=== PATIENT | female | born 1965 | race Caucasian/White ===

== ENCOUNTER 2024-03-31 18:20 | Inpatient (IN) | payer MEDICAID ==
[~2024-03-31] VITALS: Ht 177.8 cm; Wt 72.7 kg
[2024-03-31 20:22] LABS: BASOPHILS % (AUTO) 0.3 % (0-1); EOSINOPHILS # (AUTO) 0.1 X10'3 (0-0.9); EOSINOPHILS % (AUTO) 0.7 % (0-6); HEMOGLOBIN 11.3 g/dl (12.0-16.0); LYMPHOCYTES # (AUTO) 1.7 X10'3 (1.1-4.8); LYMPHOCYTES % (AUTO) 14.9 % (21-51); MEAN CORPUSCULAR HEMOGLOBIN 28.9 PG (27.0-31.0); MEAN CORPUSCULAR HGB CONC 33.2 g/dL (33.0-36.5); MEAN CORPUSCULAR VOLUME 87.1 FL (78-98); MONOCYTES # (AUTO) 0.5 X10'3 (0-0.9); MONOCYTES % (AUTO) 4.1 % (2-12); NEUTROPHILS # (AUTO) 9.3 X10'3 (1.8-7.7); PLATELET COUNT 253 X10'3 (140-440); RED BLOOD COUNT 3.91 X10'6 (4.20-5.60); RED CELL DISTRIBUTION WIDTH 15.4 % (11.5-14.5); WHITE BLOOD COUNT 11.6 X10'3 (4.5-11.0)
[2024-03-31] MEDS ORDERED: magnesium sulf-water 4G/100mL 100 ML IV PRN (20:50)
[2024-03-31] MEDS ORDERED: morphine 2 MG/ML inj. syringe IV PRN (20:50)
[2024-03-31] MEDS ORDERED: ondansetron/PF 4mg/2ml inj IV PRN (20:50)
[2024-03-31] MEDS ORDERED: magnesium Cl slow-release 64mg tablet PO PRN (20:50)
[2024-03-31] MEDS ORDERED: magnesium sulf-water 2g/50mL 50 ML IV PRN (20:50)
[2024-03-31] MEDS ORDERED: magnesium hydroxide 30ml (MOM) UD suspension PO PRN (20:50)
[2024-03-31] MEDS ORDERED: acetaminophen 325mg tablet PO PRN (20:50)
[2024-03-31] MEDS ORDERED: mag hydrox/Alum hydrox/simeth 30ml oral suspension PO PRN (20:50)
[2024-03-31] MEDS ORDERED: potassium Cl 20 mEq SR tablet PO PRN (20:50)
[2024-03-31] MEDS ORDERED: potassium Cl 40MEQ/1/2NS 520ml 520 ML IV PRN (20:50)
[2024-03-31] MEDS: normal saline 1000ml 1,000 ML IV SCH (21:23)
[2024-03-31 21:34] LABS: BILIRUBIN,URINE NEGATIVE (Neg); CLARITY,URINE SLIGHTLY CLOUDY (Clear); COLOR,URINE YELLOW (Yellow); GLUCOSE, URINE NEGATIVE (Neg); KETONES,URINE TRACE mg/dl (Neg); LEUKOCYTE ESTERASE ,URINE TRACE (Neg); NITRITES, URINE NEGATIVE (Neg); OCCULT BLOOD,URINE MODERATE (Neg); PROTEIN,URINE TRACE mg/dl (Neg); UROBILINOGEN,URINE 0.2 E.U/dL (0.2-1.0)
[2024-03-31 21:38] LABS: UA COLLECTION TYPE CLN CATCH MIDSTREAM
[2024-03-31 21:39] LABS: BACTERIA,URINE 3+ /HPF (Neg); SQUAMOUS EPITHELIAL CELL,UR FEW /LPF (FEW)
[2024-03-31 22:05] LABS: ALANINE AMINOTRANSFERASE 38 U/L (12-78); ALBUMIN 1.9 G/DL (3.4-5.0); ALBUMIN/GLOBULIN RATIO 0.5 (1.1-1.5); ALKALINE PHOSPHATASE 270 IU/L (46-116); ANION GAP 11 (8-16); ASPARTATE AMINO TRANSFERASE 32 U/L (10-37); BILIRUBIN,TOTAL 0.7 MG/DL (0.1-1.0); BLOOD UREA NITROGEN 34 MG/DL (7-18); BUN/CREATININE RATIO 21.7 (10.0-20.0); CALCIUM 8.7 MG/DL (8.5-10.1); CHLORIDE 104 MMOL/L (99-107); CREATININE 1.57 MG/DL (0.40-0.90); GLUCOSE 87 MG/DL (70-104); POTASSIUM 3.3 MMOL/L (3.5-5.1); SODIUM 137 MMOL/L (135-145); TOTAL CARBON DIOXIDE 21.7 MMOL/L (24-32); TOTAL PROTEIN 6.1 G/DL (6.4-8.2); eCRCL 41 ML/MIN; eGFR 34 ML/MIN
[2024-03-31 22:30] VITALS: BP 141/68; PULSE 107; RESP 18; TEMP 99.8; O2SAT 98
[2024-03-31 22:36] VITALS: RESP 20; O2SAT 94
[2024-04-01] VITALS (11 sets, daily range): BP systolic 91–104; BP diastolic 39–55; PULSE 68–96; RESP 14–22; TEMP 97.2–97.7; O2SAT 93–100
[2024-04-01] MEDS: piperacillin/tazo 4.5gm/100ml 100 ML IV SCH (00:28)
[2024-04-01] MEDS: potassium Cl 20 mEq SR tablet PO PRN (00:28)
[2024-04-01 06:34] LABS: BASOPHILS % (AUTO) 0.2 % (0-1); EOSINOPHILS % (AUTO) 0.2 % (0-6); HEMATOCRIT 25.6 % (35.0-45.0); HEMOGLOBIN 8.8 g/dl (12.0-16.0); LYMPHOCYTES % (AUTO) 7.2 % (21-51); MEAN CORPUSCULAR HEMOGLOBIN 28.9 PG (27.0-31.0); MEAN CORPUSCULAR HGB CONC 34.1 g/dL (33.0-36.5); MEAN CORPUSCULAR VOLUME 84.8 FL (78-98); MEAN PLATELET VOLUME 7.9 FL (7.4-10.4); MONOCYTES # (AUTO) 0.8 X10'3 (0-0.9); MONOCYTES % (AUTO) 5.8 % (2-12); NEUTROPHILS # (AUTO) 11.6 X10'3 (1.8-7.7); NEUTROPHILS % (AUTO) 86.6 % (42-75); PLATELET COUNT 291 X10'3 (140-440); RED BLOOD COUNT 3.02 X10'6 (4.20-5.60); RED CELL DISTRIBUTION WIDTH 14.7 % (11.5-14.5); WHITE BLOOD COUNT 13.4 X10'3 (4.5-11.0)
[2024-04-01 07:00] LABS: ALANINE AMINOTRANSFERASE 35 U/L (12-78); ALBUMIN 1.6 G/DL (3.4-5.0); ALBUMIN/GLOBULIN RATIO 0.4 (1.1-1.5); ALKALINE PHOSPHATASE 318 IU/L (46-116); ANION GAP 13 (8-16); ASPARTATE AMINO TRANSFERASE 34 U/L (10-37); BILIRUBIN,TOTAL 1.2 MG/DL (0.1-1.0); BLOOD UREA NITROGEN 27 MG/DL (7-18); BUN/CREATININE RATIO 18.4 (10.0-20.0); CALCIUM 8.2 MG/DL (8.5-10.1); CHLORIDE 105 MMOL/L (99-107); CREATININE 1.47 MG/DL (0.40-0.90); GLUCOSE 91 MG/DL (70-104); MAGNESIUM 1.8 MG/DL (1.5-2.4); POTASSIUM 3.6 MMOL/L (3.5-5.1); SODIUM 137 MMOL/L (135-145); TOTAL CARBON DIOXIDE 19.4 MMOL/L (24-32); TOTAL PROTEIN 5.6 G/DL (6.4-8.2); eCRCL 44 ML/MIN; eGFR 36 ML/MIN
[2024-04-01] MEDS: K and/or MAG REPLACEMENT MC SCH (08:00)
[2024-04-01] MEDS: docusate sod 100mg capsule PO SCH (08:31)
[2024-04-01] MEDS: heparin, porcine 5000 units/ml vial SQ SCH (08:31)
[2024-04-01] MEDS ORDERED: iohexol 300 MG/1 ML 50ml polymer ONE (11:42)
[2024-04-01] MEDS: HYDROmorphone inj. 0.5 MG/0.5 ML DISP.SYRIN IV PRN (11:56)
[2024-04-01] MEDS ORDERED: morphine 4 MG/ML inj SYRINge IV PRN (13:30)
[2024-04-01] MEDS ORDERED: enalaprilat dihydrate 2.5mg/2ml vial IV PRN (13:30)
[2024-04-01] MEDS ORDERED: meperidine/PF 25mg/ml syringe IV PRN ×3 (13:30)
[2024-04-01] MEDS ORDERED: morphine 2 MG/ML inj. syringe IV PRN (13:30)
[2024-04-01] MEDS ORDERED: proCHLORperazine 10 MG/2 ml inj IV PRN (13:30)
[2024-04-01] MEDS ORDERED: ondansetron/PF 4mg/2ml inj IV PRN (13:30)
[2024-04-01] MEDS ORDERED: labetalol 20mg/4ml (5mg/ml) syringe IV PRN (13:30)
[2024-04-01] MEDS ORDERED: sevoflurane 250ml liquid IH ONE (14:45)
[2024-04-01] MEDS ORDERED: midazolam 1 mg/ML 2ml injection ONE (14:54)
[2024-04-01] MEDS ORDERED: fentaNYL/PF 50MCG/1 ML 2ML syringe ONE (14:54)
[2024-04-01] MEDS ORDERED: LIDOcaine 2% (20mg/ml) 5ml vial ONE (15:08)
[2024-04-01] MEDS ORDERED: propofol inj 20 ML IV ONE (15:08)
[2024-04-01] MEDS ORDERED: dexamethasone sod phosphate 4mg/ml inj. ONE (15:09)
[2024-04-01] MEDS ORDERED: ondansetron/PF 4mg/2ml inj ONE (15:09)
[2024-04-01] MEDS: iohexol 350 MG/ML 50ML vial IV ONE (15:41)
[2024-04-01] MEDS ORDERED: HYDR-3965 PO (15:48)
[2024-04-01] MEDS: ringers solution, lacted 1,000 ML IV SCH (16:00)
[2024-04-01] MEDS: Melatonin 3mg tablet PO ONE (23:01)
[2024-04-02 06:40] VITALS: BP 97/54; PULSE 78; RESP 16; TEMP 97.9; O2SAT 95
[2024-04-02 06:42] LABS: BASOPHILS % (AUTO) 0.1 % (0-1); EOSINOPHILS % (AUTO) 0 % (0-6); HEMATOCRIT 26.1 % (35.0-45.0); HEMOGLOBIN 8.6 g/dl (12.0-16.0); LYMPHOCYTES # (AUTO) 0.9 X10'3 (1.1-4.8); LYMPHOCYTES % (AUTO) 5.8 % (21-51); MEAN CORPUSCULAR HEMOGLOBIN 28.3 PG (27.0-31.0); MEAN CORPUSCULAR HGB CONC 33.1 g/dL (33.0-36.5); MEAN CORPUSCULAR VOLUME 85.6 FL (78-98); MONOCYTES # (AUTO) 0.2 X10'3 (0-0.9); MONOCYTES % (AUTO) 1.1 % (2-12); NEUTROPHILS # (AUTO) 15.2 X10'3 (1.8-7.7); PLATELET COUNT 384 X10'3 (140-440); RED BLOOD COUNT 3.05 X10'6 (4.20-5.60); RED CELL DISTRIBUTION WIDTH 14.8 % (11.5-14.5); WHITE BLOOD COUNT 16.3 X10'3 (4.5-11.0)
[2024-04-02 07:26] LABS: ALANINE AMINOTRANSFERASE 36 U/L (12-78); ALBUMIN 1.9 G/DL (3.4-5.0); ALBUMIN/GLOBULIN RATIO 0.4 (1.1-1.5); ALKALINE PHOSPHATASE 320 IU/L (46-116); ANION GAP 10 (8-16); ASPARTATE AMINO TRANSFERASE 30 U/L (10-37); BILIRUBIN,TOTAL 0.8 MG/DL (0.1-1.0); BLOOD UREA NITROGEN 24 MG/DL (7-18); BUN/CREATININE RATIO 19.2 (10.0-20.0); CALCIUM 7.9 MG/DL (8.5-10.1); CHLORIDE 104 MMOL/L (99-107); CREATININE 1.25 MG/DL (0.40-0.90); FERRITIN 465 NG/ML (8-252); GLUCOSE 146 MG/DL (70-104); MAGNESIUM 1.8 MG/DL (1.5-2.4); POTASSIUM 3.8 MMOL/L (3.5-5.1); SODIUM 137 MMOL/L (135-145); TOTAL CARBON DIOXIDE 22.6 MMOL/L (24-32); TOTAL PROTEIN 6.3 G/DL (6.4-8.2); eCRCL 52 ML/MIN; eGFR 44 ML/MIN
[2024-04-02 07:43] LABS: % IRON SATURATION 9 % (11-46); IRON 20 UG/DL (49-151); TOTAL IRON BINDING CAPACITY 217 UG/DL (259-388)
[2024-04-02 08:55] VITALS: RESP 16; O2SAT 95
[2024-04-02 10:23] VITALS: BP 97/58; PULSE 80; RESP 16; TEMP 98; O2SAT 99
[2024-04-02] MEDS ORDERED: CIPR-259 PO (10:52)
== END 2024-04-02 11:30 | disposition home or self-care (01) | DRG 463 ==
LOC: ER 18:21 → ED HOLD 20:48 → ORTHO 4S 22:25
PROVIDERS: ADMIT Internal Medicine Critical Care Medicine; ATTEND Internal Medicine
PROC: BW211ZZ Computerized Tomography (CT Scan) of Abdomen and Pelvis using Low Osmolar Contrast (ICD-10-PCS; 2024-03-31)
PROC: BT1F1ZZ Fluoroscopy of Left Kidney, Ureter and Bladder using Low Osmolar Contrast (ICD-10-PCS; 2024-04-01)
PROC: 0T778DZ Dilation of Left Ureter with Intraluminal Device, Via Natural or Artificial Opening Endoscopic (ICD-10-PCS; principal; 2024-04-01 14:45)
DX: N13.6 Pyonephrosis (principal); N17.9 Acute kidney failure, unspecified; E66.9 Obesity, unspecified; Z66 Do not resuscitate; R73.03 Prediabetes; D72.829 Elevated white blood cell count, unspecified; D64.9 Anemia, unspecified; F17.210 Nicotine dependence, cigarettes, uncomplicated; R31.9 Hematuria, unspecified; Z90.710 Acquired absence of both cervix and uterus; Z68.23 Body mass index [BMI] 23.0-23.9, adult
CPT/HCPCS: 36415; 74176; 76000; 80053; 81001; 82607; 82728; 83036; 83540; 83550; 83735; 84145; 85025; 87040; 87081; 87088; 97161; 97530; 99285; A4615; A4618; C2617; G0378; J1100; J1171; J1644; J2003; J2250; J2405; J2543; J2704; J3010; J7030; Q9967

== ENCOUNTER 2024-04-07 19:11 | Inpatient (IN) | payer MEDICAID ==
[~2024-04-07] VITALS: Ht 176.5 cm; Wt 66.8 kg
[~2024-04-07 19:11] MED LIST: CIPR-259 PO; HYDR-3965 PO
[2024-04-07 20:29] LABS: EOSINOPHILS % (AUTO) 0.1 % (0-6); HEMOGLOBIN 8.9 g/dl (12.0-16.0); LYMPHOCYTES # (AUTO) 1.7 X10'3 (1.1-4.8); MEAN CORPUSCULAR HEMOGLOBIN 28.8 PG (27.0-31.0); MEAN CORPUSCULAR HGB CONC 34.1 g/dL (33.0-36.5); MEAN CORPUSCULAR VOLUME 84.6 FL (78-98); MEAN PLATELET VOLUME 6.8 FL (7.4-10.4); MONOCYTES # (AUTO) 0.3 X10'3 (0-0.9); NEUTROPHILS # (AUTO) 1.5 X10'3 (1.8-7.7); NEUTROPHILS % (AUTO) 41.9 % (42-75); PLATELET COUNT 414 X10'3 (140-440); RED BLOOD COUNT 3.07 X10'6 (4.20-5.60); RED CELL DISTRIBUTION WIDTH 15.4 % (11.5-14.5); WHITE BLOOD COUNT 3.5 X10'3 (4.5-11.0)
[2024-04-07 20:46] LABS: ANION GAP 7 (8-16); BLOOD UREA NITROGEN 10 MG/DL (7-18); BUN/CREATININE RATIO 8.3 (10.0-20.0); CALCIUM 6.4 MG/DL (8.5-10.1); CHLORIDE 106 MMOL/L (99-107); CREATININE 1.21 MG/DL (0.40-0.90); POTASSIUM 3.1 MMOL/L (3.5-5.1); PRO BRAIN NATRIURETIC PEPTIDE 165 PG/ML (0-125); SODIUM 141 MMOL/L (135-145); TOTAL CARBON DIOXIDE 28.2 MMOL/L (24-32); eCRCL 52 ML/MIN; eGFR 45 ML/MIN
[2024-04-07 20:54] LABS: GLUCOSE 100 MG/DL (70-104)
[2024-04-07 21:49] LABS: MAGNESIUM 1.3 MG/DL (1.5-2.4)
[2024-04-07] MEDS ORDERED: mag hydrox/Alum hydrox/simeth 30ml oral suspension PO PRN (22:25)
[2024-04-07] MEDS ORDERED: HYDROmorphone/PF 0.2 MG/ML SYRINGE IV PRN (22:25)
[2024-04-07] MEDS ORDERED: magnesium sulf-water 4G/100mL 100 ML IV PRN (22:25)
[2024-04-07] MEDS ORDERED: acetaminophen 325mg tablet PO PRN ×2 (22:25)
[2024-04-07] MEDS ORDERED: potassium Cl 40MEQ/1/2NS 520ml 520 ML IV PRN (22:25)
[2024-04-07] MEDS ORDERED: magnesium hydroxide 30ml (MOM) UD suspension PO PRN (22:25)
[2024-04-07] MEDS ORDERED: potassium Cl 20 mEq SR tablet PO PRN (22:25)
[2024-04-07] MEDS: HYDROmorphone/PF 0.2 MG/ML SYRINGE IV ONE (22:35)
[2024-04-07] MEDS ORDERED: albuterol 1.25 MG/3 ML (1/2 strength) nebule NEB PRN (22:40)
[2024-04-07] MEDS: acetaminophen 325mg tablet PO ONE (22:41)
[2024-04-07] MEDS: ringers solution, lacted 1,000 ML IV SCH (22:59)
[2024-04-07] MEDS: ondansetron/PF 4mg/2ml inj IV PRN (22:59)
[2024-04-07] MEDS: HYDROmorphone inj. 0.5 MG/0.5 ML DISP.SYRIN IV PRN (22:59)
[2024-04-08] VITALS (8 sets, daily range): BP systolic 97–118; BP diastolic 44–59; PULSE 65–84; RESP 14–26; TEMP 97.2–98.4; O2SAT 92–97
[2024-04-08] MEDS: ipratropium/albuterol 3ml nebule NEB SCH (00:08)
[2024-04-08] MEDS ORDERED: ipratropium/albuterol 3ml nebule NEB PRN (00:15)
[2024-04-08] MEDS: normal saline 500ml IV soln 500 ML IV ONE (00:30)
[2024-04-08 02:46] LABS: EOSINOPHILS % (AUTO) 0.1 % (0-6); LYMPHOCYTES # (AUTO) 1.6 X10'3 (1.1-4.8); MEAN PLATELET VOLUME 7.2 FL (7.4-10.4); NEUTROPHILS # (AUTO) 1.5 X10'3 (1.8-7.7)
[2024-04-08 02:48] LABS: BASOPHILS % (AUTO) 0.9 % (0-1); HEMATOCRIT 28.1 % (35.0-45.0); HEMOGLOBIN 9.4 g/dl (12.0-16.0); LYMPHOCYTES % (AUTO) 47.8 % (21-51); MEAN CORPUSCULAR HEMOGLOBIN 28.6 PG (27.0-31.0); MEAN CORPUSCULAR HGB CONC 33.6 g/dL (33.0-36.5); MEAN CORPUSCULAR VOLUME 85.1 FL (78-98); MONOCYTES # (AUTO) 0.2 X10'3 (0-0.9); MONOCYTES % (AUTO) 7.2 % (2-12); PLATELET COUNT 372 X10'3 (140-440); RED CELL DISTRIBUTION WIDTH 15.3 % (11.5-14.5); WHITE BLOOD COUNT 3.4 X10'3 (4.5-11.0)
[2024-04-08 02:52] LABS: INR 1.1 INR; PROTHROMBIN TIME 11.8 SECONDS (9.0-12.0)
[2024-04-08 02:57] LABS: ALANINE AMINOTRANSFERASE 46 U/L (12-78); ALBUMIN/GLOBULIN RATIO 0.5 (1.1-1.5); ALKALINE PHOSPHATASE 149 IU/L (46-116); ANION GAP 7 (8-16); ASPARTATE AMINO TRANSFERASE 57 U/L (10-37); BILIRUBIN,TOTAL 0.3 MG/DL (0.1-1.0); BLOOD UREA NITROGEN 7 MG/DL (7-18); BUN/CREATININE RATIO 5.8 (10.0-20.0); CALCIUM 6.7 MG/DL (8.5-10.1); CHLORIDE 107 MMOL/L (99-107); CHOL/HDL RATIO 5.9 (0.00-4.99); CHOLESTEROL 124 MG/DL (0-200); CREATININE 1.21 MG/DL (0.40-0.90); GLUCOSE 103 MG/DL (70-104); HDL CHOLESTEROL 21 MG/DL (35-60); LDL CHOLESTEROL 74 MG/DL (50-100); MAGNESIUM 1.3 MG/DL (1.5-2.4); PHOSPHORUS 2.9 MG/DL (2.3-4.5); POTASSIUM 3.3 MMOL/L (3.5-5.1); SODIUM 142 MMOL/L (135-145); TOTAL CARBON DIOXIDE 28.3 MMOL/L (24-32); TOTAL PROTEIN 5.8 G/DL (6.4-8.2); TRIGLYCERIDES 176 MG/DL (20-135); eCRCL 52 ML/MIN; eGFR 45 ML/MIN
[2024-04-08 03:29] LABS: TOTAL CELLS COUNTED 100
[2024-04-08] MEDS: LidoCAINE 2% Topical Jelly 11mL syringe (UROJET) TOP ONE (03:30)
[2024-04-08 04:28] LABS: BILIRUBIN,URINE NEGATIVE (Neg); CLARITY,URINE CLOUDY (Clear); COLOR,URINE YELLOW (Yellow); GLUCOSE, URINE NEGATIVE (Neg); KETONES,URINE NEGATIVE (Neg); LEUKOCYTE ESTERASE ,URINE SMALL (Neg); NITRITES, URINE NEGATIVE (Neg); OCCULT BLOOD,URINE LARGE (Neg); PH,URINE 6.5 (4.8-8.0); PROTEIN,URINE NEGATIVE (Neg); UROBILINOGEN,URINE 0.2 E.U/dL (0.2-1.0)
[2024-04-08 04:32] LABS: UA COLLECTION TYPE NON-SPECIFIED
[2024-04-08 04:33] LABS: BACTERIA,URINE FEW /HPF (Neg); RBC,URINE 50-100 /HPF (0-2); SQUAMOUS EPITHELIAL CELL,UR FEW /LPF (FEW); WBC,URINE 0-4 /HPF (0-4)
[2024-04-08] MEDS: HYDROcodone/acetaminophen 10/325mg tab PO PRN (04:37)
[2024-04-08] MEDS: potassium bicarbonate/cit acid 25mEq tablet.effervescent PO SCH (04:38)
[2024-04-08] MEDS: magnesium sulf-water 2g/50mL 50 ML IV PRN (05:17)
[2024-04-08] MEDS: potassium Cl 20 mEq SR tablet PO PRN (05:17)
[2024-04-08] MEDS: docusate sod 100mg capsule PO SCH (08:00)
[2024-04-08] MEDS: K and/or MAG REPLACEMENT MC SCH (08:00)
[2024-04-08] MEDS: CefTRIAXone/D5W-Rocephin 1gm 50 ML IV SCH (08:34)
[2024-04-08] MEDS: azithromycin/NS 500mg/250ml 250 ML IV SCH (08:34)
[2024-04-08] MEDS: heparin, porcine 5000 units/ml vial SQ SCH (08:34)
[2024-04-08] MEDS ORDERED: ONDA-103 PO (10:32)
[2024-04-08] MEDS ORDERED: CIPR500T5 PO (10:32)
[2024-04-08] MEDS ORDERED: HYDR-3964 PO (10:32)
[2024-04-08] MEDS: normal saline 1000ml 1,000 ML IV SCH (11:38)
[2024-04-08] MEDS: HYDROcodone/acetaminophen 5mg/325mg tablet PO PRN (20:53)
[2024-04-08] MEDS: magnesium Cl slow-release 64mg tablet PO PRN (21:47)
[2024-04-09] VITALS (10 sets, daily range): BP systolic 88–104; BP diastolic 44–51; PULSE 69–103; RESP 13–26; TEMP 97.6–98.6; O2SAT 92–100
[2024-04-09 07:44] LABS: BASOPHILS % (AUTO) 0.7 % (0-1); EOSINOPHILS % (AUTO) 0.1 % (0-6); HEMATOCRIT 26.3 % (35.0-45.0); HEMOGLOBIN 9.1 g/dl (12.0-16.0); LYMPHOCYTES # (AUTO) 1.8 X10'3 (1.1-4.8); LYMPHOCYTES % (AUTO) 39.5 % (21-51); MEAN CORPUSCULAR HEMOGLOBIN 29.3 PG (27.0-31.0); MEAN CORPUSCULAR HGB CONC 34.6 g/dL (33.0-36.5); MEAN CORPUSCULAR VOLUME 84.6 FL (78-98); MEAN PLATELET VOLUME 7.3 FL (7.4-10.4); MONOCYTES # (AUTO) 0.4 X10'3 (0-0.9); MONOCYTES % (AUTO) 7.7 % (2-12); NEUTROPHILS # (AUTO) 2.4 X10'3 (1.8-7.7); PLATELET COUNT 347 X10'3 (140-440); RED CELL DISTRIBUTION WIDTH 15.2 % (11.5-14.5); WHITE BLOOD COUNT 4.7 X10'3 (4.5-11.0)
[2024-04-09 07:53] LABS: INR 1.1 INR; PROTHROMBIN TIME 11.5 SECONDS (9.0-12.0)
[2024-04-09 07:58] LABS: ALANINE AMINOTRANSFERASE 53 U/L (12-78); ALBUMIN 1.8 G/DL (3.4-5.0); ALBUMIN/GLOBULIN RATIO 0.5 (1.1-1.5); ALKALINE PHOSPHATASE 137 IU/L (46-116); ANION GAP 6 (8-16); ASPARTATE AMINO TRANSFERASE 79 U/L (10-37); BILIRUBIN,TOTAL 0.3 MG/DL (0.1-1.0); BLOOD UREA NITROGEN 8 MG/DL (7-18); BUN/CREATININE RATIO 8.2 (10.0-20.0); CALCIUM 7.5 MG/DL (8.5-10.1); CHLORIDE 105 MMOL/L (99-107); CREATININE 0.98 MG/DL (0.40-0.90); GLUCOSE 86 MG/DL (70-104); MAGNESIUM 1.4 MG/DL (1.5-2.4); POTASSIUM 3.9 MMOL/L (3.5-5.1); SODIUM 141 MMOL/L (135-145); TOTAL CARBON DIOXIDE 29.9 MMOL/L (24-32); TOTAL PROTEIN 5.6 G/DL (6.4-8.2); eCRCL 64 ML/MIN; eGFR 58 ML/MIN
[2024-04-10] VITALS (10 sets, daily range): BP systolic 88–126; BP diastolic 48–61; PULSE 68–83; RESP 12–20; TEMP 97.4–98.4; O2SAT 92–98
[2024-04-10 06:36] LABS: INR 1.1 INR; PROTHROMBIN TIME 11.1 SECONDS (9.0-12.0)
[2024-04-10 06:40] LABS: ALANINE AMINOTRANSFERASE 58 U/L (12-78); ALBUMIN 1.9 G/DL (3.4-5.0); ALBUMIN/GLOBULIN RATIO 0.4 (1.1-1.5); ALKALINE PHOSPHATASE 168 IU/L (46-116); ANION GAP 5 (8-16); ASPARTATE AMINO TRANSFERASE 81 U/L (10-37); BILIRUBIN,TOTAL 0.4 MG/DL (0.1-1.0); BLOOD UREA NITROGEN 9 MG/DL (7-18); BUN/CREATININE RATIO 9.5 (10.0-20.0); CALCIUM 8.6 MG/DL (8.5-10.1); CHLORIDE 104 MMOL/L (99-107); CREATININE 0.95 MG/DL (0.40-0.90); GLUCOSE 93 MG/DL (70-104); MAGNESIUM 1.5 MG/DL (1.5-2.4); PHOSPHORUS 3.1 MG/DL (2.3-4.5); SODIUM 139 MMOL/L (135-145); TOTAL CARBON DIOXIDE 29.7 MMOL/L (24-32); TOTAL PROTEIN 6.3 G/DL (6.4-8.2); eCRCL 66 ML/MIN; eGFR 60 ML/MIN
[2024-04-10 06:57] LABS: BASOPHILS % (AUTO) 0.2 % (0-1); EOSINOPHILS % (AUTO) 0.1 % (0-6); HEMATOCRIT 29.2 % (35.0-45.0); HEMOGLOBIN 9.9 g/dl (12.0-16.0); LYMPHOCYTES # (AUTO) 1.8 X10'3 (1.1-4.8); LYMPHOCYTES % (AUTO) 33.5 % (21-51); MEAN CORPUSCULAR HGB CONC 33.8 g/dL (33.0-36.5); MEAN CORPUSCULAR VOLUME 85.9 FL (78-98); MEAN PLATELET VOLUME 6.9 FL (7.4-10.4); MONOCYTES # (AUTO) 0.4 X10'3 (0-0.9); MONOCYTES % (AUTO) 7.3 % (2-12); NEUTROPHILS # (AUTO) 3.2 X10'3 (1.8-7.7); NEUTROPHILS % (AUTO) 58.9 % (42-75); PLATELET COUNT 360 X10'3 (140-440); RED CELL DISTRIBUTION WIDTH 15.4 % (11.5-14.5); WHITE BLOOD COUNT 5.4 X10'3 (4.5-11.0)
[2024-04-11 02:14] VITALS: BP 114/52; PULSE 75; RESP 16; TEMP 97.5; O2SAT 89
[2024-04-11 06:00] VITALS: BP 111/46; PULSE 71; RESP 16; TEMP 98.2; O2SAT 93
[2024-04-11 07:19] LABS: BASOPHILS % (AUTO) 0.3 % (0-1); EOSINOPHILS % (AUTO) 0.2 % (0-6); HEMATOCRIT 26.6 % (35.0-45.0); HEMOGLOBIN 9.2 g/dl (12.0-16.0); LYMPHOCYTES # (AUTO) 1.8 X10'3 (1.1-4.8); LYMPHOCYTES % (AUTO) 26.9 % (21-51); MEAN CORPUSCULAR HEMOGLOBIN 28.8 PG (27.0-31.0); MEAN CORPUSCULAR HGB CONC 34.4 g/dL (33.0-36.5); MEAN CORPUSCULAR VOLUME 83.6 FL (78-98); MEAN PLATELET VOLUME 6.6 FL (7.4-10.4); MONOCYTES # (AUTO) 0.6 X10'3 (0-0.9); MONOCYTES % (AUTO) 8.4 % (2-12); NEUTROPHILS # (AUTO) 4.3 X10'3 (1.8-7.7); NEUTROPHILS % (AUTO) 64.2 % (42-75); PLATELET COUNT 386 X10'3 (140-440); RED BLOOD COUNT 3.18 X10'6 (4.20-5.60); RED CELL DISTRIBUTION WIDTH 14.7 % (11.5-14.5); WHITE BLOOD COUNT 6.7 X10'3 (4.5-11.0)
[2024-04-11] MEDS: azithromycin 250mg tablet PO SCH (07:28)
[2024-04-11 07:36] LABS: INR 1.1 INR; PROTHROMBIN TIME 11.4 SECONDS (9.0-12.0)
[2024-04-11 07:42] LABS: ALANINE AMINOTRANSFERASE 64 U/L (12-78); ALBUMIN 1.9 G/DL (3.4-5.0); ALBUMIN/GLOBULIN RATIO 0.4 (1.1-1.5); ALKALINE PHOSPHATASE 174 IU/L (46-116); ANION GAP 6 (8-16); ASPARTATE AMINO TRANSFERASE 97 U/L (10-37); BILIRUBIN,TOTAL 0.4 MG/DL (0.1-1.0); BLOOD UREA NITROGEN 8 MG/DL (7-18); BUN/CREATININE RATIO 8.7 (10.0-20.0); CALCIUM 8.2 MG/DL (8.5-10.1); CHLORIDE 105 MMOL/L (99-107); CREATININE 0.92 MG/DL (0.40-0.90); GLUCOSE 88 MG/DL (70-104); MAGNESIUM 1.4 MG/DL (1.5-2.4); PHOSPHORUS 3.1 MG/DL (2.3-4.5); POTASSIUM 3.8 MMOL/L (3.5-5.1); SODIUM 140 MMOL/L (135-145); TOTAL CARBON DIOXIDE 29.3 MMOL/L (24-32); TOTAL PROTEIN 6.3 G/DL (6.4-8.2); eCRCL 69 ML/MIN; eGFR 62 ML/MIN
[2024-04-11 08:00] VITALS: RESP 22; O2SAT 95
[2024-04-11] MEDS ORDERED: potassium Cl 20 mEq SR tablet PO PRN ×2 (09:40)
[2024-04-11] MEDS ORDERED: magnesium sulf-water 4G/100mL 100 ML IV PRN (09:40)
[2024-04-11] MEDS ORDERED: potassium Cl 40MEQ/1/2NS 520ml 520 ML IV PRN (09:40)
[2024-04-11] MEDS ORDERED: magnesium sulf-water 2g/50mL 50 ML IV PRN (09:40)
[2024-04-11] MEDS: magnesium Cl slow-release 64mg tablet PO PRN (09:48)
[2024-04-11 10:00] VITALS: BP 119/60; PULSE 79; RESP 22; TEMP 97.6; O2SAT 95
[2024-04-11 10:36] VITALS: RESP 16
[2024-04-11 10:36] LABS: % IRON SATURATION 6 % (11-46); IRON 15 UG/DL (49-151); TOTAL IRON BINDING CAPACITY 236 UG/DL (259-388)
[2024-04-11] MEDS ORDERED: iohexol 300mg/ml 100ml inj. ONE (12:40)
[2024-04-11] MEDS ORDERED: LEVO-65 PO (15:16)
[2024-04-11] MEDS ORDERED: ALBU18HF2 IH (15:16)
[2024-04-11] MEDS ORDERED: ACET-1008 PO (15:16)
[2024-04-11] MEDS ORDERED: POLY17PO10 PO (17:04)
[2024-04-11] MEDS ORDERED: HYDR-3965 PO (17:10)
[2024-04-11] MEDS ORDERED: K and/or MAG REPLACEMENT MC SCH (20:00)
== END 2024-04-11 16:05 | disposition home or self-care (01) | DRG 465 ==
LOC: ER 19:11 → ED HOLD 22:35 → PCU 3S 04-08 07:19 → ORTHO 4S 04-11 02:18
PROVIDERS: ADMIT Surgery; ATTEND Internal Medicine
PROC: BW251ZZ Computerized Tomography (CT Scan) of Chest, Abdomen and Pelvis using Low Osmolar Contrast (ICD-10-PCS; principal; 2024-04-11)
DX: N13.39 Other hydronephrosis (principal); J96.01 Acute respiratory failure with hypoxia; J18.9 Pneumonia, unspecified organism; Z66 Do not resuscitate; Z20.822 Contact with and (suspected) exposure to COVID-19; D63.8 Anemia in other chronic diseases classified elsewhere; K74.69 Other cirrhosis of liver; K59.00 Constipation, unspecified; R73.03 Prediabetes; E87.6 Hypokalemia; N20.0 Calculus of kidney; Z80.3 Family history of malignant neoplasm of breast; Z90.710 Acquired absence of both cervix and uterus
CPT/HCPCS: 36415; 71045; 71260; 74177; 80048; 80053; 80061; 81001; 83540; 83550; 83605; 83735; 83880; 84100; 84145; 85007; 85025; 85610; 85651; 86885; 86900; 86901; 87040; 87081; 87502; 87503; 87811; 92508; 92616; 93005; 94760; 97116; 97161; 97530; 99285; C1758; G0378; J0456; J0696; J1171; J1644; J2405; J7030; J7040; J7120; Q9967